=== PATIENT | female | born 1990 | race Asian ===

== ENCOUNTER 2017-11-06 19:13 | Outpatient (CLI) | payer OTHER ==
[2017-11-06] MEDS: LACTATED RINGER'S 1,000 ML IV* ×2 (20:21→21:22)
[2017-11-06 20:30] LABS: ADD UMIC YES; UR ASCORBIC ACID NEGATIVE (NEGATIVE); UR BACTERIA FEW /HPF (NONE SEEN); UR BILIRUBIN (Dip) NEGATIVE (NEGATIVE); UR BLOOD (Dip) NEGATIVE (NEGATIVE); UR CLARITY SLIGHTLY CLOUDY (CLEAR); UR COLOR YELLOW (YELLOW); UR GLUCOSE (Dip) NEGATIVE (NEGATIVE); UR KETONES (Dip) 1+ mg/dL (NEGATIVE); UR LEUKOCYTE ESTERASE (Dip) 3+ Leu/ul (NEGATIVE); UR MUCUS FEW /HPF (NONE SEEN); UR NITRITE (Dip) NEGATIVE (NEGATIVE); UR RBC 2 /HPF (0-5); UR SPECIFIC GRAVITY (Dip) 1.025 (1.003-1.030); UR SQUAMOUS EPITHELIAL CELL FEW /HPF (FEW); UR TOTAL PROTEIN (Dip) 1+ mg/dl (NEGATIVE); UR UROBILINOGEN (Dip) NEGATIVE (NEGATIVE); UR WBC 21 /HPF (0-5)
[2017-11-06] MEDS: CEFAZOLIN 2 GM/50 ML (PMX) 50 ML IVPB (21:29)
[2017-11-06] MEDS ORDERED: TERBUTALINE 1 MG/ML INJ SC (22:00)
[2017-11-06] MEDS: TERBUTALINE 1 MG/ML INJ SC (22:14)
== END 2017-11-06 23:18 | disposition home or self-care (01) ==
LOC: OBT 19:13 → L-D 19:14 → OBT 23:18
DX: O23.42 Unspecified infection of urinary tract in pregnancy, second trimester (principal); O47.02 False labor before 37 completed weeks of gestation, second trimester; Z3A.27 27 weeks gestation of pregnancy
CPT/HCPCS: 36415; 76815; 76817; 81001; 82731; 87086; 96360; 96361; 96367; 96372